=== PATIENT | male | born 1965 | race Caucasian/White ===

== ENCOUNTER 2017-12-27 14:49 | Emergency (ER) | payer BC ==
[~2017-12-27] VITALS: Ht 172.7 cm; Wt 79.4 kg
--- NOTE | ~2017-12-27 | EKG ---
[address] [address] ELECTROCARDIOGRAM REPORT Name: HELADIO KELLEY Room #: DEP Melissa#: [id number] Admission: 12/27/17 Attend Phys: Discharge: 12/27/17 Date of : 63 Report #: [id number] THIS REPORT FOR: //name// 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
[2017-12-27] MEDS ORDERED: ALEVE220 MG PO (14:57)
[2017-12-27] MEDS ORDERED: XANAX 0.25 MG0.25 MG PO (14:58)
[2017-12-27 15:33] LABS: HEMATOCRIT 41.9 % (42.0-52.0); HEMOGLOBIN 14.7 gm/dL (14.0-18.0); MCH 33.5 pg (26.0-34.0); MCV 95.6 fL (80.0-100.0); PLATELET COUNT 302 thou/uL (150-400); RBC 4.39 mil/uL (4.50-6.00); RDW 12.7 % (10.5-14.5)
[2017-12-27 15:36] LABS: ANION GAP 6 mmol/L (7-16); BUN 17 mg/dL (7-18); CALCIUM 9.4 mg/dL (8.5-10.1); CHLORIDE 100 mmol/L (98-107); CO2 28 mmol/L (21-32); GLUCOSE 110 mg/dL (74-106); POTASSIUM 4.3 mmol/L (3.5-5.1); SODIUM 134 mmol/L (136-145)
[2017-12-27 15:46] LABS: ALBUMIN 3.6 g/dL (3.4-5.0); LIPASE 192 U/L (73-393); SGOT 58 U/L (15-37); SGPT 76 U/L (30-65); TOTAL BILIRUBIN 0.6 mg/dL (<0.1-1.0); TOTAL PROTEIN 7.8 g/dL (6.4-8.2); TROPONIN-I <0.06 ng/mL (<0.06)
[2017-12-27 15:57] LABS: ABSOLUTE NEUTROPHILS 5.5 thou/uL (1.4-8.2); ATYPICAL LYMPHS 3 %
[2017-12-27] MEDS ORDERED: TRAMADOL 50 MG50 MG PO (17:10)
[2017-12-27 17:39] VITALS: BP 168/79
[2017-12-27 17:45] LABS: URINE BILIRUBIN NEGATIVE (Negative); URINE BLOOD TRACE (Negative); URINE CLARITY CLEAR; URINE COLOR YELLOW; URINE GLUCOSE-RANDOM* NEGATIVE (Negative); URINE KETONES NEGATIVE (Negative); URINE LEUKOCYTES-REFLEX NEGATIVE (Negative); URINE NITRITE-REFLEX NEGATIVE (Negative); URINE PROTEIN (DIPSTICK) NEGATIVE (Negative); URINE UROBILINOGEN 0.2 E.U./dl (0.2-1.0)
== END 2017-12-27 17:41 | disposition home or self-care (01) ==
LOC: ER 14:49
PROVIDERS: Emergency Medicine
DX: K52.9 Noninfective gastroenteritis and colitis, unspecified (principal); Z90.49 Acquired absence of other specified parts of digestive tract